=== PATIENT | male | born 1985 | race African-American/Black ===

== ENCOUNTER 2024-01-04 07:12 | Inpatient (IN) | payer SELFPAY ==
[~2024-01-04] VITALS: Ht 175.3 cm; Wt 90.7 kg
[2024-01-04 07:57] LABS: HEMATOCRIT. 43.9 % (42.0-52.0); HEMOGLOBIN. 15.1 g/dL (14.0-18.0); MEAN CORPUSCULAR HEMOGLOBIN 32.6 pg (28.0-32.0); MEAN CORPUSCULAR HGB CONC 34.4 g/dL (31.0-37.0); MEAN CORPUSCULAR VOLUME 94.9 fL (80.0-94.0); MEAN PLATELET VOLUME 7.4 fl (7.4-10.4); PLATELET 201 x1000/uL (130-400); RED BLOOD CELL COUNT 4.63 mill/uL (4.7-6.1); RED CELL DISTRIBUTION WIDTH 13.1 % (11.6-14.6); WHITE BLOOD COUNT 10.8 x1000/uL (4.5-11.0)
[2024-01-04 08:06] LABS: CHLORIDE 104 mEq/L (98-107); POTASSIUM 4.2 mEq/L (3.5-5.1); SODIUM 136 mEq/L (136-145)
[2024-01-04 08:07] LABS: CALCIUM 9.3 mg/dL (8.7-10.4); CARBON DIOXIDE 27 mEq/L (21-32)
[2024-01-04 08:11] LABS: DIFFERENTIAL COMMENT 1
[2024-01-04] MEDS: ACETAMINOPHEN 325MG TABLET PO STA (08:11)
[2024-01-04] MEDS: KETOROLAC 30MG/ML VIAL IV STA (08:11)
[2024-01-04 08:12] LABS: CREATININE 1.2 mg/dL (0.6-1.3); GLUCOSE 113 mg/dL (70-105); UREA NITROGEN BLOOD 8 mg/dL (9-23)
[2024-01-04 08:13] LABS: TROPONIN I HIGH SENSITIVITY 6 ng/L (3.0-53)
[2024-01-04] MEDS: SODIUM CHLORIDE 0.9% 1,000 ML IV ONE (08:22)
[2024-01-04] MEDS ORDERED: IPRATROPIUM BROMIDE (0.02%) 0.5MG/2.5ML NEB HHN STA (09:59)
[2024-01-04] MEDS ORDERED: ALBUTEROL (0.083%) 2.5MG/3ML NEB HHN STA (09:59)
[2024-01-04] MEDS: METHYLPREDNISOLONE SOD SUCC 125MG/2ML (ACT-O-VIAL) IV STA (10:50)
[2024-01-04] MEDS: MAGNESIUM 2 G PREMIX 50 ML IV STA (10:51)
[2024-01-04 11:53] LABS: PLATELET ESTIMATE NORMAL
[2024-01-04 11:56] VITALS: PULSE 88; RESP 20; O2SAT 100
[2024-01-04] MEDS: IPRATROPIUM BROMIDE (0.02%) 0.5MG/2.5ML NEB HHN NR (11:56)
[2024-01-04] MEDS: ALBUTEROL (0.083%) 2.5MG/3ML NEB HHN NR (11:56)
[2024-01-04 12:04] VITALS: BP_SYST 124; BP_SYST 126; BP_DIAS 64; PULSE 89; RESP 18; TEMP 36.72516; TEMP 36.7516; O2SAT 98
[2024-01-04] MEDS ORDERED: ACETAMINOPHEN 325MG TABLET PO PRN (12:30)
[2024-01-04] MEDS ORDERED: ONDANSETRON HCL 4MG/2ML INJ IV PRN (12:30)
[2024-01-04] MEDS: FAMOTIDINE 20MG/2ML VIAL IV SCH (13:08)
[2024-01-04] MEDS: DEXT 5%/LACTATED RINGERS 1,000 ML IV SCH (13:08)
[2024-01-04] MEDS: AZITHROMYCIN 500MG/250ML 250 ML IV SCH (15:50)
[2024-01-04] MEDS: LACTATED RINGERS 1,000 ML IV ONE (15:54)
[2024-01-04 16:00] VITALS: BP 136/63; PULSE 88; RESP 18; TEMP 36.72516; O2SAT 96
[2024-01-04 16:47] LABS: IRON 19 ug/dL (65-175)
[2024-01-04 16:50] LABS: TOTAL IRON BINDING CAPACITY 367 ug/dl (250-425)
[2024-01-04 16:51] LABS: PHOSPHORUS 1.4 mg/dL (2.5-4.9)
[2024-01-04 16:53] LABS: FERRITIN 97 ng/mL (22-322); VITAMIN B12 SERUM 589 pg/mL (211-911)
[2024-01-04 17:01] LABS: CREATINE KINASE 4219 IU/L (46-171)
[2024-01-04 20:00] VITALS: BP 119/74; PULSE 90; RESP 17; TEMP 37.503; O2SAT 96
[2024-01-04 20:30] LABS: CLARITY URINE TURBID (CLEAR); COLOR URINE YELLOW (YELLOW); GLUCOSE URINE 1+ (NEGATIVE); KETONES URINE NEGATIVE (NEGATIVE); LEUKOCYTE ESTERASE URINE NEGATIVE (NEGATIVE); NITRITE URINE NEGATIVE (NEGATIVE); OCCULT BLOOD URINE TRACE (NEGATIVE); PH URINE 5.5 (4.5-8.0); PROTEIN URINE 1+ (NEGATIVE); UROBILINOGEN URINE 0.2 E.U./dL (0.2-1.0)
[2024-01-04 20:42] LABS: *AMPHETAMINES SCREEN URINE NEGATIVE (NEGATIVE); *BARBITURATES SCREEN URINE NEGATIVE (NEGATIVE); *BENZODIAZEPINES SCREEN URINE NEGATIVE (NEGATIVE); *COCAINE SCREEN URINE NEGATIVE (NEGATIVE)
[2024-01-04 20:43] LABS: CANNABINOID URINE SCREEN PRESUMPTIVE POSITIVE (NEGATIVE); ECSTASY MDMA SCREEN URINE NEGATIVE (NEGATIVE); METHADONE URINE SCREEN NEGATIVE (NEGATIVE); OPIATES URINE SCREEN NEGATIVE (NEGATIVE); PHENCYCLIDINE URINE SCREEN NEGATIVE (NEGATIVE)
[2024-01-04 20:57] LABS: BACTERIA URINE 4+; RBC URINE 0-2 /hpf (0-2); WBC URINE 0-2 /hpf (0-2)
[2024-01-04 20:58] LABS: AMORPHOUS SEDIMENT URINE 1+ /lpf; SQUAMOUS EPITHELIAL CELL URINE RARE /lpf (RARE/1+)
[2024-01-04] MEDS: SODIUM PHOSPHATE 30 MMOL in DEXT 5% WATER 490 ML IV NR (21:14)
[2024-01-05] VITALS (7 sets, daily range): BP systolic 111–135; BP diastolic 63–74; PULSE 66–87; RESP 16–20; TEMP 36.50292–36.83628; O2SAT 95–99
[2024-01-05 00:40] LABS: CREATINE KINASE 4489 IU/L (46-171)
[2024-01-05 07:34] LABS: CARBON DIOXIDE 25 mEq/L (21-32); CHLORIDE 106 mEq/L (98-107); SODIUM 137 mEq/L (136-145)
[2024-01-05 07:39] LABS: T4 FREE 0.91 ng/dL (0.89-1.76); THYROID STIMULATING HORMONE 1.05 uIU/mL (0.55-4.78)
[2024-01-05 07:40] LABS: GLUCOSE 101 mg/dL (70-105); TRIGLYCERIDE 59 mg/dL (0-150); UREA NITROGEN BLOOD 10 mg/dL (9-23)
[2024-01-05 07:41] LABS: LDL CHOLESTEROL 82 mg/dL (5-100)
[2024-01-05 07:42] LABS: CHOLESTEROL 139 mg/dL (<200); HDL CHOLESTEROL 45 mg/dL (>55); PHOSPHORUS 3.9 mg/dL (2.5-4.9)
[2024-01-05 07:48] LABS: CREATINE KINASE 3850 IU/L (46-171)
[2024-01-05] MEDS: IPRATROPIUM/ALBUTEROL 0.5-3(2.5)MG/3ML NEB HHN PRN (12:29)
[2024-01-05] MEDS: FOLIC ACID 1 MG, THIAMINE HCL 100 MG, MVI, ADULT NO.1 10 ML in DEXTROSE 5% WATER 1,000 ML IV ONE (13:34)
[2024-01-05] MEDS: FERROUS SULFATE 325MG TABLET PO SCH (20:07)
[2024-01-06] VITALS: BP 118/65; PULSE 70; RESP 20; TEMP 36.3918; O2SAT 99
[2024-01-06 04:00] VITALS: BP 115/60; PULSE 68; RESP 20; TEMP 36.28068; O2SAT 100
[2024-01-06 06:56] LABS: CALCIUM 8.9 mg/dL (8.7-10.4); CHLORIDE 104 mEq/L (98-107); POTASSIUM 4.2 mEq/L (3.5-5.1); SODIUM 135 mEq/L (136-145)
[2024-01-06 06:57] LABS: CARBON DIOXIDE 26 mEq/L (21-32)
[2024-01-06 07:02] LABS: CREATININE 1.1 mg/dL (0.6-1.3); GLUCOSE 88 mg/dL (70-105); UREA NITROGEN BLOOD 13 mg/dL (9-23)
[2024-01-06 07:07] LABS: HEMATOCRIT 43.7 % (42.0-52.0); HEMOGLOBIN 14.9 g/dL (14.0-18.0); MEAN CORPUSCULAR HEMOGLOBIN 32.8 pg (28.0-32.0); MEAN CORPUSCULAR HGB CONC 34.1 g/dL (31.0-37.0); MEAN CORPUSCULAR VOLUME 96.3 fL (80.0-94.0); PLATELET 187 x1000/uL (130-400); RED BLOOD CELL COUNT 4.54 mill/uL (4.7-6.1); RED CELL DISTRIBUTION WIDTH 13.5 % (11.6-14.6); WHITE BLOOD COUNT 7.3 x1000/uL (4.5-11.0)
[2024-01-06 08:00] VITALS: BP 122/72; PULSE 65; RESP 18; TEMP 36.89184; O2SAT 96
[2024-01-06 09:52] VITALS: PULSE 84; RESP 18; O2SAT 97
[2024-01-06] MEDS ORDERED: TUSSL MT (10:08)
[2024-01-06 10:27] VITALS: BP 122/72; PULSE 65; TEMP 98.4; O2SAT 96
[2024-01-06 12:00] VITALS: BP 115/70; PULSE 68; RESP 20; TEMP 36.61404; O2SAT 97
== END 2024-01-06 12:55 | disposition home or self-care (01) | DRG 249 ==
LOC: ER 07:29 → 7EST 11:11 → EDBEDREQ 11:19 → EDBEDREQTM 11:19
PROVIDERS: ADMIT Internal Medicine; ATTEND Internal Medicine
DX: A08.4 Viral intestinal infection, unspecified (principal); J96.00 Acute respiratory failure, unspecified whether with hypoxia or hypercapnia; J20.9 Acute bronchitis, unspecified; J02.9 Acute pharyngitis, unspecified; J45.901 Unspecified asthma with (acute) exacerbation; D75.89 Other specified diseases of blood and blood-forming organs; F17.200 Nicotine dependence, unspecified, uncomplicated; Z20.822 Contact with and (suspected) exposure to COVID-19; F12.10 Cannabis abuse, uncomplicated; F10.10 Alcohol abuse, uncomplicated; Z71.41 Alcohol abuse counseling and surveillance of alcoholic
CPT/HCPCS: 36415; 71045; 80048; 80061; 80305; 81003; 82270; 82550; 82607; 82728; 82746; 83540; 83550; 83735; 84100; 84145; 84439; 84443; 84484; 85025; 85027; 87015; 87045; 87426; 87427; 87449; 87804; 89055; 93005; 94640; 99285; J0456; J1885; J2919; J3411; J3475; J3490; J7030; J7060; J7070